=== PATIENT | female | born 1990 | race African-American/Black ===

== ENCOUNTER 2016-10-26 13:49 | Emergency (ER) | payer SELFPAY ==
[2016-10-26 13:56] VITALS: BP 147/91; PULSE 79; TEMP 98.6; BMI 24.1
[2016-10-26 15:22] LABS: URINE APPEARANCE CLEAR; URINE BILIRUBIN NEGATIVE (NEGATIVE); URINE BLOOD NEGATIVE (NEGATIVE); URINE COLOR STRAW; URINE GLUCOSE (UA) NEGATIVE (NEGATIVE); URINE KETONE NEGATIVE (NEGATIVE); URINE LEUK ESTERASE TRACE (NEGATIVE); URINE NITRITE NEGATIVE (NEGATIVE); URINE PROTEIN NEGATIVE (NEGATIVE); URINE UROBILINOGEN NEGATIVE mg/dL (0.2-1.0)
[2016-10-26 15:34] LABS: URINE BACTERIA RARE /hpf (NONE SEEN); URINE MUCUS RARE; URINE RBC 1 /hpf (0-3); URINE WBC 10 /hpf (3-5)
--- NOTE | 2016-10-26 15:50 | PDOC ---
History of Present Illness - General Chief Complaint: Pain Stated Complaint: PAIN Time Seen by Provider: 10/26/16 14:20 History Source: Patient Exam Limitations: No Limitations - History of Present Illness Travel History: No Initial Comments: 10/26/16 15:51 25-year-old female presents the ED with complaints of mild suprapubic cramping associated with lower abdominal distention over the past 2 weeks worse in the evening hours. Patient has no other complaints at this time including urinary complaints, irregular menses, change in bowel pattern, fever, nausea, or rash. Patient does state history of fibroid and had surgery a few years ago. Patient states has not taken anything for the pain nor has she seeked medical attention. Timing/Duration: reports: intermittent Quality: reports: mild, cramping Abdominal Pain Onset Location: reports: periumbilical ( lower), suprapubic Pain Radiation: denies: no radiation Activities at Onset: denies: none Aggravating Factors: worse with: None Alleviating Factors: worse with: None Past History - Travel Traveled outside of the country in the last 30 days: No - Past Medical History Allergies/Adverse Reactions: Allergies Allergy/AdvReac Type Severity Reaction Status Date / Time No Known Allergies Allergy Verified 10/26/16 13:55 Home Medications: Ambulatory Orders NK [No Known Home Medication] 10/26/16 Kidney Stones: Yes - Psycho/Social/Smoking Cessation Hx Anxiety: No Suicidal Ideation: No Smoking Status: Yes Smoking History: Current some day smoker Number of Cigarettes Smoked Daily: 2 Information on smoking cessation initiated: No Hx Alcohol Use: Yes (SOCIAL) Drug/Substance Use Hx: No Substance Use Type: None Patient Lives Alone: No Lives with/in: parents Review of Systems - Review of Systems Able to Perform ROS?: Yes Constitutional: No: Symptoms Reported HEENTM: No: Symptoms Reported ABD/GI: Yes: Abdominal Distended, Abdominal cramping : No: Symptoms Reported Musculoskeletal: No: Symptoms Reported Integumentary: No: Symptoms Reported Neurological: No: Symptoms reported *Physical Exam - Vital Signs Last Vital Signs Temp Pulse Resp BP Pulse Ox 98.6 F 79 18 147/91 100 10/26/16 13:52 10/26/16 13:52 10/26/16 13:52 10/26/16 13:52 10/26/16 13:52 - Physical Exam General Appearance: Yes: Nourished, Appropriately Dressed. No: Apparent Distress Female Pelvic Exam: positive: normal external exam. negative: vaginal bleeding Gastrointestinal/Abdominal: positive: Normal Bowel Sounds, Soft, Distended (mid suprapubic), Tenderness (mid suprapubic). negative: Guarding, Rebound, Hernia, Mass Musculoskeletal: negative: CVA Tenderness Extremity: positive: Normal Range of Motion Integumentary: positive: Normal Color, Warm, Moist Neurologic: positive: Motor Strength 5/5 (ambulatory) Medical Decision Making - Medical Decision Making 10/26/16 15:54 Patient here for concerning lower abdominal distention intermittently for the past 2 weeks resolved in the a.m. return to the evening. Patient has no other complaints except for mild pelvic cramping. Patient on exam had noted mild suprapubic distention without palpable mass. Patient with mild lower periumbilical discomfort upon palpation. Patient with a urinalysis urine and ultrasound. 10/26/16 18:13 Shows multiple uterine fibroids with at least 3 identified the largest measuring up to 3.9 cm in size. Otherwise ovaries and adnexal regions are normal. Patient will be given a referral to PYRIDINE OPERATOR and/or follow-up with previous PYRIDINE OPERATOR who performed previous surgery. 10/26/16 18:13 Laboratory Tests 10/26/16 14:50 Urine Nitrite Negative Ur Leukocyte Esterase Trace Urine WBC 10 Urine HCG, Qual Negative Pt has no urinary complaints. Urine cx sent. Will await results *DC/Admit/Observation/Transfer Diagnosis at time of Disposition: Fibroid, uterine Qualifiers: Uterine leiomyoma location: intramural Qualified Code(s): D25.1 - Intramural leiomyoma of uterus - Discharge Dispostion Disposition: HOME Condition at time of disposition: Good - Referrals Referrals: Asuncion Diaz MD [Staff Physician] - - Patient Instructions Printed Discharge Instructions: DI for Uterine Fibroids Additional Instructions: Please follow-up with your previous PYRIDINE OPERATOR that performed the surgery since the ultrasound that shows multiple uterine fibroids. Otherwise you may follow up with the referred PYRIDINE OPERATOR. - Post Discharge Activity Work/School Note: Back to Work
== END 2016-10-26 18:27 | disposition home or self-care (01) ==
LOC: JER 13:49
DX: D25.1 Intramural leiomyoma of uterus (principal)
CPT/HCPCS: 76856-TC; 81003; 81015; 84703; 87077; 87086; 99282-25

== ENCOUNTER 2017-02-02 02:19 | Emergency (ER) | payer SELFPAY ==
[2017-02-02 02:38] VITALS: BP 157/99; PULSE 77; BMI 27.4
[2017-02-02] MEDS ORDERED: FAMOTIDINE IV 20 MG/12 ML VIAL IVPB ONE (02:59)
[2017-02-02] MEDS ORDERED: ONDANSETRON 4 MG/2 ML VIAL IVPUSH ONE (02:59)
[2017-02-02] MEDS ORDERED: SODIUM CHLORIDE 0.9% 1000 ML INFUS.BAG IV ONE (03:02)
[2017-02-02] MEDS ORDERED: KETOROLAC TROMETHAMINE 30 MG/1 ML VIAL IVPUSH ONE (03:02)
--- NOTE | 2017-02-02 03:10 | PDOC ---
History of Present Illness - General Chief Complaint: Pain Stated Complaint: ABD PAIN Time Seen by Provider: 02/02/17 02:53 History Source: Patient Exam Limitations: No Limitations - History of Present Illness Initial Comments: 02/02/17 03:03 Patient is a 26-year-old female with history of fibroids, myomectomy complaining of nausea, vomiting, diarrhea, abdominal pain x 3 days. Patient states 3 days ago she went out to eat seafood and started to have symptoms. States she took Imodium for diarrhea stopped, was unable to pass any bowel. This morning woke up vomiting. States she had upper abdominal pain while vomiting was 8/10 then became generalized achy, crampy, intermittent, pain 6/ 10. Currently has nausea, but has not pain. PMHX: As above PSOCHX: neg cig, drugs, etoh ALL: NKDA GENERAL/CONSTITUTIONAL: [No fever or chills. No weakness. No weight change.] HEAD, EYES, EARS, NOSE AND THROAT: [No change in vision. No ear pain or discharge. No sore throat.] CARDIOVASCULAR: [No chest pain or shortness of breath.] RESPIRATORY: [No cough, wheezing, or hemoptysis.] GASTROINTESTINAL: (+) nausea, vomiting, diarrhea (-) constipation. No rectal bleeding.] GENITOURINARY: [No dysuria, frequency, or change in urination.] MUSCULOSKELETAL: [No joint or muscle swelling or pain. No neck or back pain.] SKIN AND BREASTS: [No rash or easy bruising.] NEUROLOGIC: [No headache, vertigo, loss of consciousness, or loss of sensation.] PSYCHIATRIC: [No depression or anxiety.] ENDOCRINE: [No increased thirst. No abnormal weight change.] HEMATOLOGIC/LYMPHATIC: [No anemia, easy bleeding, or history of blood clots.] ALLERGIC/IMMUNOLOGIC: [No hives or skin allergy. No latex allergy.] GENERAL: [The patient is awake, alert, and fully oriented, in no acute distress. ] HEAD: [Normal with no signs of trauma.] EYES: [Pupils equal, round and reactive to light, extraocular movements intact, sclera anicteric, conjunctiva clear.] ENT: [Ears normal, nares patent, oropharynx clear without exudates. Moist mucous membranes.] NECK: [Normal range of motion, supple without lymphadenopathy, JVD, or masses.] LUNGS: [Breath sounds equal, clear to auscultation bilaterally. No wheezes, and no crackles.] HEART: [Regular rate and rhythm, normal S1 and S2 without murmur, rub.] ABDOMEN: [Soft, nontender, normoactive bowel sounds. No guarding, no rebound. No masses.] EXTREMITIES: [Normal range of motion, no edema. No clubbing or cyanosis. No cords, erythema, or tenderness.] NEUROLOGICAL: [Cranial nerves II through XII grossly intact. Normal speech, normal gait.] PSYCH: [Normal mood, normal affect.] SKIN: [Warm, Dry, normal turgor, no rashes or lesions noted.] 02/02/17 04:30 Past History - Past Medical History Allergies/Adverse Reactions: Allergies Allergy/AdvReac Type Severity Reaction Status Date / Time No Known Allergies Allergy Verified 02/02/17 02:35 Home Medications: Ambulatory Orders NK [No Known Home Medication] 10/26/16 Kidney Stones: Yes - Suicide/Smoking/Psychosocial Hx Smoking Status: Yes Smoking History: Never smoked Have you smoked in the past 12 months: No Number of Cigarettes Smoked Daily: 2 Information on smoking cessation initiated: No Hx Alcohol Use: No Drug/Substance Use Hx: No Substance Use Type: None *Physical Exam - Vital Signs Last Vital Signs Temp Pulse Resp BP Pulse Ox 77 12 157/99 100 02/02/17 02:37 02/02/17 02:37 02/02/17 02:37 02/02/17 02:37 ED Treatment Course - LABORATORY CBC & Chemistry Diagram: 02/02/17 03:32 02/02/17 03:32 Medical Decision Making - Medical Decision Making 02/02/17 03:10 Patient is a 26-year-old female with history of fibroids, myomectomy complaining of nausea, vomiting, diarrhea, abdominal pain x 3 days after eating seafood consistent with gastroenteritis, labs, pain meds, antinausea, IVF, cbc cmp, reassess 02/02/17 04:36 labs with no acute finding will po challenge tolerating po 02/02/17 05:44 ua neg I discussed the physical exam findings, ancillary test results and final diagnoses with the patient. I answered all of the patient's questions. The patient was satisfied with the care received and felt comfortable with the discharge plan and treatment plan. The Patient agrees to follow up with the primary care physician within 24-72 hours. *DC/Admit/Observation/Transfer Diagnosis at time of Disposition: Nausea vomiting and diarrhea, Pain, abdominal, generalized - Discharge Dispostion Disposition: HOME Condition at time of disposition: Stable - Referrals Referrals: [facility] [Provider Group] - Patient Instructions Printed Discharge Instructions: DI for Viral Gastroenteritis -- Adult - Post Discharge Activity Forms/Work/School Notes: Back to Work
[2017-02-02] MEDS ORDERED: KETOROLAC TROMETHAMINE 30 MG/1 ML VIAL ONE (03:14)
[2017-02-02] MEDS ORDERED: ONDANSETRON 4 MG/2 ML VIAL ONE (03:14)
[2017-02-02] MEDS ORDERED: FAMOTIDINE 20 MG/50 ML IVPB 20 MG/50 ML MG IVPB ONE (03:14)
[2017-02-02 03:44] LABS: BASOPHIL 1.2 % (0-2.0); EOSINOPHIL 2.2 % (0-4.5); MCH 25.5 pg (25.7-33.7); MEAN CELL VOLUME 79.7 fl (80-96); MEAN PLT VOLUME 10.6 fl (7.5-11.1); NEUTROPHILS 63.4 % (42.8-82.8); PLATELET COUNT 201 K/MM3 (134-434); RDW 16.5 % (11.6-15.6); WHITE BLOOD COUNT 4.8 K/mm3 (4.0-10.0)
[2017-02-02 04:10] LABS: ALBUMIN 3.5 g/dl (3.4-5.0); ALK PHOS 78 U/L (45-117); ANION GAP 8 (8-16); BILIRUBIN,TOTAL 0.2 mg/dL (0.2-1.0); CO2 25 mmol/L (21-32); CREATININE 0.7 mg/dL (0.55-1.02); GLUCOSE,RANDOM 97 mg/dL (74-106); SGOT/AST 17 U/L (15-37); SGPT/ALT 16 U/L (12-78); TOT PROT 7.5 g/dl (6.4-8.2)
[2017-02-02 05:15] LABS: URINE APPEARANCE CLEAR; URINE BILIRUBIN NEGATIVE (NEGATIVE); URINE BLOOD NEGATIVE (NEGATIVE); URINE COLOR COLORLESS; URINE GLUCOSE (UA) NEGATIVE (NEGATIVE); URINE KETONE NEGATIVE (NEGATIVE); URINE NITRITE NEGATIVE (NEGATIVE); URINE PROTEIN NEGATIVE (NEGATIVE); URINE UROBILINOGEN NEGATIVE mg/dL (0.2-1.0)
[2017-02-02 13:12] LABS: URINE LEUK ESTERASE Negative (NEGATIVE)
== END 2017-02-02 06:03 | disposition home or self-care (01) ==
LOC: JER 02:19
PROC: 3E0333Z Introduction of Anti-inflammatory into Peripheral Vein, Percutaneous Approach (ICD-10-PCS; principal; 2017-02-02)
PROC: 3E033GC Introduction of Other Therapeutic Substance into Peripheral Vein, Percutaneous Approach (ICD-10-PCS; 2017-02-02)
PROC: 3E033GC Introduction of Other Therapeutic Substance into Peripheral Vein, Percutaneous Approach (ICD-10-PCS; 2017-02-02)
DX: A08.4 Viral intestinal infection, unspecified (principal); B97.89 Other viral agents as the cause of diseases classified elsewhere
CPT/HCPCS: 36415; 80053; 81003; 85025; 99283-25

== ENCOUNTER 2017-03-08 02:49 | Emergency (ER) | payer BC, OTHER ==
[2017-03-08 03:19] VITALS: BP 145/73; PULSE 86; TEMP 98.3; BMI 29.2
--- NOTE | 2017-03-08 04:04 | PDOC ---
History of Present Illness - General History Source: Patient Exam Limitations: No Limitations - History of Present Illness Initial Comments: 03/08/17 04:13 The patient is a 26 year old female with a significant past medical history kidney stones who presents to the ED with abdominal pain for 2 days. The patient reports intermittent epigastric that radiates downward to her lower quadrant. Patient states the pain feels like a pulling sensation. She reports her epigastric pain is sharp and is progressively worsening. She states she took motrin at home with relief of present symptoms. Patient states she has a history of abdominal problems for years. Patient does not regularly follow up with primary care provider. Denies vomiting or diarrhea. Denies dysuria or change in urinary output. Denies fever or chills. Denies any other symptoms. <Reji Hanley - Last Filed: 03/08/17 04:13> <Ana Tobias - Last Filed: 03/08/17 21:15> - General Chief Complaint: Pain Stated Complaint: ABD PAIN Time Seen by Provider: 03/08/17 03:16 Past History <Reji Hanley - Last Filed: 03/08/17 04:13> - Past Medical History Anemia: No Asthma: No Cancer: No Cardiac Disorders: No CVA: No COPD: No DVT: No Dementia: No Diabetes: No Dialysis: No GI Disorders: No Disorders: No HTN: No Hypercholesterolemia: No Kidney Stones: Yes Liver Disease: No Psychiatric Problems: No Seizures: No Thyroid Disease: No Lung CA: No - Suicide/Smoking/Psychosocial Hx Smoking Status: Yes Smoking History: Never smoked Have you smoked in the past 12 months: No Number of Cigarettes Smoked Daily: 2 Information on smoking cessation initiated: No Hx Alcohol Use: No Drug/Substance Use Hx: No Substance Use Type: None <Ana Tobias - Last Filed: 03/08/17 21:15> - Past Medical History Allergies/Adverse Reactions: Allergies Allergy/AdvReac Type Severity Reaction Status Date / Time No Known Allergies Allergy Verified 03/08/17 03:19 Home Medications: Ambulatory Orders NK [No Known Home Medication] 10/26/16 Review of Systems - Review of Systems Able to Perform ROS?: Yes Comments:: 03/08/17 04:13 CONSTITUTIONAL: Absent: fever, chills, diaphoresis, generalized weakness, malaise, loss of appetite HEENT: Absent: rhinorrhea, nasal congestion, throat pain, throat swelling, difficulty swallowing, mouth swelling, ear pain, eye pain, visual Changes CARDIOVASCULAR: Absent: chest pain, syncope, palpitations, irregular heart rate, lightheadedness , peripheral edema RESPIRATORY: Absent: cough, shortness of breath, dyspnea with exertion, orthopnea, wheezing, stridor, hemoptysis GASTROINTESTINAL: + abdominal pain Absent: abdominal distension, nausea, vomiting, diarrhea, constipation, melena, hematochezia GENITOURINARY: Absent: dysuria, frequency, urgency, hesitancy, hematuria, flank pain, genital pain MUSCULOSKELETAL: Absent: myalgia, arthralgia, joint swelling SKIN: Absent: rash, itching, pallor HEMATOLOGIC/IMMUNOLOGIC: Absent: easy bleeding, easy bruising, lymphadenopathy, frequent infections ENDOCRINE: Absent: unexplained weight gain, unexplained weight loss, heat intolerance, cold intolerance NEUROLOGIC: Absent: headache, focal weakness or paresthesias, dizziness, unsteady gait, seizure, mental status changes, bladder or bowel incontinence PSYCHIATRIC: Absent: anxiety, depression, suicidal or homicidal ideation, hallucinations. All Other Systems: Reviewed and Negative <Reji Hanley - Last Filed: 03/08/17 04:13> *Physical Exam - Vital Signs Last Vital Signs Temp Pulse Resp BP Pulse Ox 98.3 F 86 18 145/73 100 03/08/17 03:17 03/08/17 03:17 03/08/17 03:17 03/08/17 03:17 03/08/17 03:17 - Physical Exam Comments: 03/08/17 04:13 GENERAL: Well developed, well nourished. Awake and alert. No acute distress. HEENT: Normocephalic, atraumatic. PERRLA, EOMI. No conjunctival pallor. Sclera are non- icteric. Moist mucous membranes. Oropharynx is clear. NECK: Supple. Full ROM. No JVD. Carotid pulses 2+ and symmetric, without bruits. No thyromegaly. NCo lymphadenopathy. CARDIOVASCULAR: Regular rate and rhythm. No murmurs, rubs, or gallops. Distal pulses are 2+ and symmetric. PULMONARY: No evidence of respiratory distress. Lungs clear to auscultation bilaterally. No wheezing, rales or rhonchi. ABDOMINAL: Soft. Non-tender. Non-distended. No rebound or guarding. No organomegaly. Normoactive bowel sounds. MUSCULOSKELETAL Normal range of motion at all joints. No bony deformities or tenderness. No CVA tenderness. EXTREMITIES: No cyanosis. No clubbing. No edema. No calf tenderness. SKIN: Warm and dry. Normal capillary refill. No rashes. No jaundice. NEUROLOGICAL: Alert, awake, appropriate. Cranial nerves 2-12 intact. No deficits to light touch and temperature in face, upper extremities and lower extremities. No motor deficits in the in face, upper extremities and lower extremities. Normoreflexic in the upper and lower extremities. Normal speech. Toes are down- going bilaterally. Gait is normal without ataxia. PSYCHIATRIC: Cooperative. Good eye contact. Appropriate mood and affect. <Reji Hanley - Last Filed: 03/08/17 04:13> - Vital Signs Last Vital Signs Temp Pulse Resp BP Pulse Ox 98.3 F 86 18 145/73 100 03/08/17 03:17 03/08/17 03:17 03/08/17 03:17 03/08/17 03:17 03/08/17 03:17 <Ana Tobias - Last Filed: 03/08/17 21:15> Medical Decision Making - Medical Decision Making 03/08/17 21:14 Pt comes with mid abdominal pain. Normal exam, normal UA, normal vitals. Abd XR shows copious constipation and gas. Pt will be discahrged home with laxative. <Ana Tobias - Last Filed: 03/08/17 21:15> *DC/Admit/Observation/Transfer - Attestations Scribe Attestion: 03/08/17 04:14 Documentation prepared by Reji Hanley, acting as medical historian for Ana Tobias MD <Reji Hanley - Last Filed: 03/08/17 04:13> - Discharge Dispostion Admit: No <Ana Tobias - Last Filed: 03/08/17 21:15> Diagnosis at time of Disposition: Constipation - Discharge Dispostion Disposition: HOME Condition at time of disposition: Stable - Patient Instructions Printed Discharge Instructions: High-Fiber Diet, DI for Constipation - Post Discharge Activity Forms/Work/School Notes: Back to Work
[2017-03-08 04:44] LABS: URINE APPEARANCE SLCLOUDY; URINE BILIRUBIN NEGATIVE (NEGATIVE); URINE BLOOD 3+ (NEGATIVE); URINE COLOR LTYELLOW; URINE GLUCOSE (UA) NEGATIVE (NEGATIVE); URINE KETONE NEGATIVE (NEGATIVE); URINE LEUK ESTERASE NEGATIVE (NEGATIVE); URINE NITRITE NEGATIVE (NEGATIVE); URINE UROBILINOGEN NEGATIVE mg/dL (0.2-1.0)
[2017-03-08 04:53] LABS: URINE PROTEIN 1+ (NEGATIVE)
[2017-03-08 04:55] LABS: EPI CELLS RARE /HPF (FEW); URINE MUCUS RARE
[2017-03-08 05:28] LABS: HCG,QUALITATIVE URINE NEGATIVE
[2017-03-08] MEDS ORDERED: LACTULOSE 20 GM/30 ML UDC (FOR ORAL USE ONLY) PO ONE (05:59)
[2017-03-08] MEDS ORDERED: LACTULOSE 20 GM/30 ML UDC (FOR ORAL USE ONLY) ONE (06:09)
== END 2017-03-08 06:17 | disposition home or self-care (01) ==
LOC: JER 02:49
DX: K59.00 Constipation, unspecified (principal)
CPT/HCPCS: 74019-TC; 81003; 81015; 84703; 99282-25

== ENCOUNTER 2017-04-06 00:30 | Emergency (ER) | payer BC, OTHER ==
--- NOTE | 2017-04-06 00:44 | PDOC ---
History of Present Illness - History of Present Illness Initial Comments: 04/06/17 01:28 Patient is a 26F, with no significant PMHx, who presents with flu-like symptoms for 2 days. Patient has a 100.9 temp, and also reports body aches, cough , chills, nasal congestion, and nausea. She denies sick contacts. <Carlie Oro - Last Filed: 04/06/17 01:30> <Angeles Daigle - Last Filed: 04/06/17 01:56> - General Chief Complaint: Cold Symptoms Stated Complaint: FLU-LIKE SYMPTOMS Time Seen by Provider: 04/06/17 00:43 Past History <Carlie Oro - Last Filed: 04/06/17 01:30> - Past Medical History Anemia: No Asthma: No Cancer: No Cardiac Disorders: No CVA: No COPD: No DVT: No Dementia: No Diabetes: No Dialysis: No GI Disorders: No Disorders: No HTN: No Hypercholesterolemia: No Kidney Stones: Yes Liver Disease: No Psychiatric Problems: No Seizures: No Thyroid Disease: No Lung CA: No - Suicide/Smoking/Psychosocial Hx Smoking Status: Yes Smoking History: Never smoked Have you smoked in the past 12 months: No Number of Cigarettes Smoked Daily: 2 Information on smoking cessation initiated: No Hx Alcohol Use: No Drug/Substance Use Hx: No Substance Use Type: None <Angeles Daigle - Last Filed: 04/06/17 01:56> - Past Medical History Allergies/Adverse Reactions: Allergies Allergy/AdvReac Type Severity Reaction Status Date / Time No Known Allergies Allergy Verified 04/06/17 00:40 Home Medications: Ambulatory Orders NK [No Known Home Medication] 10/26/16 Review of Systems - Review of Systems Comments:: 04/06/17 01:28 CONSTITUTIONAL: Present: fever, chills EYES: Absent: visual changes ENT: Present: nasal congestion. Absent: ear pain, no sore throat CARDIOVASCULAR: Absent: chest pain, no palpitations RESPIRATORY: Present: cough Absent: no SOB GI: Present: nausea Absent: abdominal pain, no vomiting, no constipation, no diarrhea GENITOURINARY: Absent: dysuria, no frequency, no hematuria MUSCULOSKELETAL: Present: myalgia Absent: back pain, no arthralgia. SKIN: Absent: rash NEURO: Absent: headache <Carlie Oro - Last Filed: 04/06/17 01:30> *Physical Exam - Vital Signs Last Vital Signs Temp Pulse Resp BP Pulse Ox 100.9 F H 106 H 20 137/89 99 04/06/17 00:40 04/06/17 00:40 04/06/17 00:40 04/06/17 00:40 04/06/17 00:40 - Physical Exam Comments: 04/06/17 01:30 GENERAL: Afebrile. Well-appearing, well-nourished. No apparent distress. HEENT: Normocephalic, atraumatic. PERRL, EOM intact. Rhinnorhea. CARDIOVASCULAR: Tachycardic. Normal S1, S2. Regular rate and rhythm. PULMONARY: Clear to auscultation bilaterally. ABDOMEN: Soft, non-distended, non-tender. EXTREMITIES: Normal ROM in all four extremities. No gross deformities. SKIN: Warm to touch. Dry. No rash NEUROLOGICAL: No focal neurological deficits. <PreethiAndres quirozina - Last Filed: 04/06/17 01:30> - Vital Signs Last Vital Signs Temp Pulse Resp BP Pulse Ox 100.9 F H 106 H 20 137/89 99 04/06/17 00:40 04/06/17 00:40 04/06/17 00:40 04/06/17 00:40 04/06/17 00:40 <Angeles Daigle - Last Filed: 04/06/17 01:56> *DC/Admit/Observation/Transfer <Carlie Oro - Last Filed: 04/06/17 01:30> <Angeles Daigle - Last Filed: 04/06/17 01:56> Diagnosis at time of Disposition: Cough Fever Qualifiers: Fever type: unspecified Qualified Code(s): R50.9 - Fever, unspecified - Discharge Dispostion Disposition: HOME Condition at time of disposition: Stable - Patient Instructions Printed Discharge Instructions: DI for Viral Upper Respiratory Infection -- Adult, DI for Common Cold Additional Instructions: please take tylenol or motrin for pain and body aches rest stay hydrated return for any worsening symptoms - Post Discharge Activity Forms/Work/School Notes: Back to Work
[2017-04-06] MEDS ORDERED: IBUPROFEN 600 MG TABLET (FP) PO ONE ×2 (01:55→01:57)
[2017-04-06 02:06] VITALS: BP 137/89; PULSE 106; TEMP 100.9; BMI 27.4
== END 2017-04-06 02:02 | disposition home or self-care (01) ==
LOC: JER 00:30
DX: J06.9 Acute upper respiratory infection, unspecified (principal); B97.89 Other viral agents as the cause of diseases classified elsewhere
CPT/HCPCS: 87804; 99281-25

== ENCOUNTER 2017-04-09 10:14 | Emergency (ER) | payer BC ==
[2017-04-09 10:22] VITALS: BP 151/90; PULSE 83; TEMP 98; BMI 27.4
--- NOTE | 2017-04-09 11:22 | PDOC ---
History of Present Illness - General Chief Complaint: Respiratory Stated Complaint: REVISIT, RESPIRATORY Time Seen by Provider: 04/09/17 10:33 History Source: Patient Exam Limitations: No Limitations - History of Present Illness Initial Comments: CHIEF COMPLAINT: 26 y/o afebrile female who was seen here 2 days ago c/o continued cough and symptoms. HISTORY OF PRESENT ILLNESS: Patient was seen 2 days ago for two days of flu like symptoms but was negative for flu. She was dx with a URI and has been taking nyquil and dayquil. She states she still has a cough and congestion and still generally feels under the weather. She does admit fever has resolved. Past History - Past Medical History Allergies/Adverse Reactions: Allergies Allergy/AdvReac Type Severity Reaction Status Date / Time No Known Allergies Allergy Verified 04/09/17 10:20 Home Medications: Ambulatory Orders Guaifenesin AC [Robitussin AC] 10 ml PO HS #100 ml MDD 20 04/09/17 Nebulizer and Compressor [Sherman Choice Nebulizer] 1 each MC PRN #1 each Sodium Chloride Inhalation [Normal Saline *For Inhalation*] 3 ml IH PRN #50 vial.neb 04/09/17 Anemia: No Asthma: No Cancer: No Cardiac Disorders: No CVA: No COPD: No DVT: No Dementia: No Diabetes: No Dialysis: No GI Disorders: No Disorders: No HTN: No Hypercholesterolemia: No Kidney Stones: Yes Liver Disease: No Psychiatric Problems: No Seizures: No Thyroid Disease: No Lung CA: No Other medical history: FIBROIDS, ENDOMETRIOSIS - Suicide/Smoking/Psychosocial Hx Smoking Status: Yes Smoking History: Never smoked Have you smoked in the past 12 months: No Number of Cigarettes Smoked Daily: 2 Hx Alcohol Use: Yes (OCCASIONALLY) Drug/Substance Use Hx: No Substance Use Type: None Review of Systems - Review of Systems Able to Perform ROS?: Yes Constitutional: No: Chills, Fever HEENTM: Yes: Nose Congestion. No: Ear Pain Respiratory: Yes: Cough, Shortness of Breath. No: Wheezing Cardiac (ROS): No: Chest Pain ABD/GI: No: Nausea, Vomiting *Physical Exam - Vital Signs Last Vital Signs Temp Pulse Resp BP Pulse Ox 98.0 F 83 16 151/90 99 04/09/17 10:17 04/09/17 10:17 04/09/17 10:17 04/09/17 10:17 04/09/17 10:17 - Physical Exam Comments: Ambulatory female, non toxic but ill appearing. General Appearance: Yes: Nourished, Appropriately Dressed. No: Apparent Distress HEENT: positive: EOMI, MENDY, Nasal Congestion. negative: Muffled/Hoarse voice, Pharyngeal Erythema, Tonsillar Exudate, Tonsillar Erythema, Rhinorrhea Neck: negative: Lymphadenopathy (R), Lymphadenopathy (L) Respiratory/Chest: positive: Lungs Clear, Normal Breath Sounds. negative: Crackles, Rales, Rhonchi, Wheezing Cardiovascular: positive: Regular Rhythm, Regular Rate Medical Decision Making - Medical Decision Making A/P: 26 y/o female with cough and congestion. Still with symptoms of URI. Plan is to send rx for nebulizer and normal saline and robitussin AC for cough to be taken at night only. Patient instructed to rest, drink fluids and return to the eR with any worsening or concerning symptoms. The patient verbalizes understanding of all instructions, has no further questions and is awaiting discharge. *DC/Admit/Observation/Transfer Diagnosis at time of Disposition: Cough Upper respiratory infection Qualifiers: URI type: unspecified URI Qualified Code(s): J06.9 - Acute upper respiratory infection, unspecified - Discharge Dispostion Disposition: HOME Condition at time of disposition: Good - Prescriptions Prescriptions: Guaifenesin AC [Robitussin AC] 10 ml PO HS #100 ml MDD 20 Nebulizer and Compressor [Sherman Choice Nebulizer] 1 each MC PRN #1 each Sodium Chloride Inhalation [Normal Saline *For Inhalation*] 3 ml IH PRN #50 vial.neb - Referrals Referrals: Dustin Hercules MD [Primary Care Provider] - - Patient Instructions Printed Discharge Instructions: DI for Viral Upper Respiratory Infection -- Adult, DI for Cough -- Adult Additional Instructions: Discharge Instructions: -Use nebulizer and cough medicine as prescribed -Drink plenty of fluids and get lots of rest -Take tylenol or motrin for fever/pain -Return to the ER with any worsening or concerning symptoms - Post Discharge Activity Forms/Work/School Notes: Back to Work
== END 2017-04-09 11:28 | disposition home or self-care (01) ==
LOC: JERFT 10:14
DX: J06.9 Acute upper respiratory infection, unspecified (principal); Z87.42 Personal history of other diseases of the female genital tract
CPT/HCPCS: 99281-25

== ENCOUNTER 2017-04-20 22:52 | Emergency (ER) | payer BC ==
[2017-04-20 23:17] VITALS: BP 143/91; PULSE 84; TEMP 97.9; BMI 28.3
[2017-04-21] MEDS ORDERED: KETOROLAC TROMETHAMINE 60 MG/2 ML VIAL IM ONE (00:03)
[2017-04-21] MEDS ORDERED: CYCLOBENZAPRINE HCL 10 MG TABLET (FP) ONE (00:06)
[2017-04-21] MEDS ORDERED: KETOROLAC TROMETHAMINE 60 MG/2 ML VIAL ONE (00:06)
--- NOTE | 2017-04-21 00:08 | PDOC ---
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 Pain is exacerbated with certain positions and alleviated minimally at rest. Patient denies falling, head injuries, neck pains, chest pain, shortness of breath, abdominal pains, extremity numbness or tingling sensation, bladder or bowel dysfunction. Patient refuses U /cxr. States she is adamantly not . Occurred: reports: yesterday Past History - Past Medical History Allergies/Adverse Reactions: Allergies Allergy/AdvReac Type Severity Reaction Status Date / Time No Known Allergies Allergy Verified 04/09/17 10:20 Home Medications: Ambulatory Orders Cyclobenzaprine HCl [Flexeril 10 mg] 10 mg PO BID PRN #12 tablet 04/21/17 Anemia: No Asthma: No Cancer: No Cardiac Disorders: No CVA: No COPD: No DVT: No Dementia: No Diabetes: No Dialysis: No GI Disorders: No Disorders: No HTN: No Hypercholesterolemia: No Kidney Stones: Yes Liver Disease: No Psychiatric Problems: No Seizures: No Thyroid Disease: No Lung CA: No - Suicide/Smoking/Psychosocial Hx Smoking Status: Yes Smoking History: Never smoked Have you smoked in the past 12 months: No Number of Cigarettes Smoked Daily: 2 Information on smoking cessation initiated: No Hx Alcohol Use: No Drug/Substance Use Hx: No Substance Use Type: None Review of Systems - Review of Systems Able to Perform ROS?: Yes Comments:: 04/21/17 00:06 CONSTITUTIONAL: Absent: fever, chills, diaphoresis, generalized weakness, malaise, loss of appetite CARDIOVASCULAR: Absent: chest pain, loss of consciousness, palpitations, irregular heart rate, peripheral edema RESPIRATORY: Absent: cough, shortness of breath, dyspnea with exertion, orthopnea, wheezing, stridor, hemoptysis GASTROINTESTINAL: Absent: abdominal pain, abdominal distension, nausea, vomiting, diarrhea, constipation, melena, hematochezia GENITOURINARY: Absent: dysuria, frequency, urgency, hesitancy, hematuria, flank pain, genital pain MUSCULOSKELETAL: Mid left sided back pain Absent: myalgia, arthralgia, joint swelling SKIN: Absent: rash, itching, pallor HEMATOLOGIC/IMMUNOLOGIC: Absent: easy bleeding, easy bruising, lymphadenopathy, frequent infections ENDOCRINE: Absent: unexplained weight gain, unexplained weight loss, heat intolerance, cold intolerance NEUROLOGIC: Absent: headache, focal weakness or paresthesias, dizziness, unsteady gait, seizure, mental status changes, bladder or bowel incontinence PSYCHIATRIC: Absent: anxiety, depression, suicidal or homicidal ideation, hallucinations. Is the patient limited Thai proficient: No *Physical Exam - Vital Signs Last Vital Signs Temp Pulse Resp BP Pulse Ox 97.9 F 84 20 143/91 98 04/20/17 23:15 04/20/17 23:15 04/20/17 23:15 04/20/17 23:15 04/20/17 23:15 *DC/Admit/Observation/Transfer Diagnosis at time of Disposition: Upper back strain Qualifiers: Encounter type: initial encounter Qualified Code(s): S29.012A - Strain of muscle and tendon of back wall of thorax, initial encounter - Discharge Dispostion Disposition: HOME Condition at time of disposition: Stable Admit: No - Prescriptions Prescriptions: Cyclobenzaprine HCl [Flexeril -] 10 mg PO HS #7 tablet - Referrals Referrals: Joaquin Anguiano MD [Staff Physician] - - Patient Instructions Printed Discharge Instructions: DI for Back Strain or Sprain Additional Instructions: Ice; 20 mins on alternating with 20 mins off for 48 hours while awake. Rest Elevate Follow up with your orthopedic surgeon or the one listed on the discharge form. Return to the ER for severe/persistent/worsening symptoms, extremity numbness/ tingling sensation. - Post Discharge Activity Forms/Work/School Notes: Back to Work
[2017-04-21] MEDS ORDERED: CYCLOBENZAPRINE HCL 5 MG TABLET PO SCH (10:00)
== END 2017-04-21 00:14 | disposition home or self-care (01) ==
LOC: JERFT 22:52
PROC: 3E0233Z Introduction of Anti-inflammatory into Muscle, Percutaneous Approach (ICD-10-PCS; principal; 2017-04-20)
DX: S29.012A Strain of muscle and tendon of back wall of thorax, initial encounter (principal); X50.0XXA Overexertion from strenuous movement or load, initial encounter; Y93.89 Activity, other specified; Y92.242 Post office as the place of occurrence of the external cause; Y99.0 Civilian activity done for income or pay
CPT/HCPCS: 99281-25

== ENCOUNTER 2017-06-15 13:30 | Emergency (ER) | payer SELFPAY ==
[2017-06-15 13:57] VITALS: BP 133/85; PULSE 91; TEMP 98.5; BMI 28.3
--- NOTE | 2017-06-15 14:20 | PDOC ---
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 She has no fever, but has nasal congestion as well. Past History - Past Medical History Allergies/Adverse Reactions: Allergies Allergy/AdvReac Type Severity Reaction Status Date / Time No Known Allergies Allergy Verified 06/15/17 13:49 Home Medications: Ambulatory Orders NK [No Known Home Medication] 06/15/17 Anemia: No Asthma: No Cancer: No Cardiac Disorders: No CVA: No COPD: No DVT: No Dementia: No Diabetes: No Dialysis: No GI Disorders: No Disorders: No HTN: No Hypercholesterolemia: No Kidney Stones: Yes Liver Disease: No Psychiatric Problems: No Seizures: No Thyroid Disease: No Lung CA: No - Suicide/Smoking/Psychosocial Hx Smoking Status: Yes Smoking History: Never smoked Have you smoked in the past 12 months: No Number of Cigarettes Smoked Daily: 2 Information on smoking cessation initiated: No Hx Alcohol Use: No Drug/Substance Use Hx: No Substance Use Type: None Review of Systems - Review of Systems Able to Perform ROS?: Yes Comments:: 06/15/17 14:15 General statement: nasal congestin and chest pain Hematology: neg history of bleeding/blood thinners Skin: Neg for lesions, rash, bruising. HEENT: Neg symptoms Respiratory: Neg SOB or difficulty in breathing Cardiac: Neg chest pain GI: Neg pain, n/v : Neg problems on voiding MS: Neg for joint pain/stiffness, no edema Neuro: Neg for LOC, weakness, Endocrine: Neg for excess thirst/hunger, cold/heat intolerance, excess sweating Allergies: Neg for allergies *Physical Exam - Vital Signs Last Vital Signs Temp Pulse Resp BP Pulse Ox 98.5 F 91 H 16 133/85 100 06/15/17 13:50 06/15/17 13:50 06/15/17 13:50 06/15/17 13:50 06/15/17 13:50 - Physical Exam Comments: 06/15/17 14:18 General Appearance: This well appearing [employer] V/S: hemodynamically stable, afebrile Skin: WNL of pt's skin color, no signs of pallor, mottling, cyanosis Head:symmetrical Eyes: EOM's intact, PERRLA Ears: denies pain Nose: patent with nasal turbinates that are swollen Throat: lips, teeth, gums, tongue, buccal mucos pink and moist Lungs: Chest symmetry equal. Cap refill <3 seconds. Lung sounds clear Cardiac: PMI at R 4MCL space, pos S1 and S2, regular rate. Abdomen: Soft, round, nontender : Not observed Muscularskeletal: Gait steady, ambulated in to ER, no edema +PMS Neuro: AAOx3, cognitively intact, speech clear and appropriate. Medical Decision Making - Medical Decision Making 06/15/17 14:18 Pt seen and examined. LUng sounds clear, no fever, CXR obtained after ua preg 06/15/17 15:02 ekg nsr cxr clear discharged. *DC/Admit/Observation/Transfer Diagnosis at time of Disposition: Upper respiratory infection Qualifiers: URI type: unspecified viral URI Qualified Code(s): J06.9 - Acute upper respiratory infection, unspecified - Discharge Dispostion Disposition: HOME Condition at time of disposition: Stable Admit: No - Referrals Referrals: Dustin Hercules MD [Primary Care Provider] - - Patient Instructions Printed Discharge Instructions: DI for Viral Upper Respiratory Infection -- Adult Additional Instructions: Discharge instructions 1. Please follow up with your primary physician within the next few days and explain that you have been seen here in the Emergency Room. 2. If you experience any worsening of symptoms, please return to the ER 3. Rest 4. Drink plenty of water take tylenol - Post Discharge Activity Forms/Work/School Notes: Back to Work
--- NOTE | 2017-06-16 16:54 | EKG ---
Test Reason : Blood Pressure : / mmHG Vent. Rate : 078 BPM Atrial Rate : 078 BPM P-R Int : 134 ms QRS Dur : 098 ms QT Int : 364 ms P-R-T Axes : 035 041 031 degrees QTc Int : 414 ms NORMAL SINUS RHYTHM NORMAL ECG NO PREVIOUS ECGS AVAILABLE Confirmed by MD Atul, Anthony ([id number]) on 06/16/2017 4:54:10 PM Referred By: SB Confirmed By:Anthony Pollard MD
== END 2017-06-15 15:08 | disposition home or self-care (01) ==
LOC: JER 13:30 → JERFT 13:30
DX: J06.9 Acute upper respiratory infection, unspecified (principal); B97.89 Other viral agents as the cause of diseases classified elsewhere
CPT/HCPCS: 71046-TC-FY; 84703; 93005; 93010; 99281-25

== ENCOUNTER 2017-07-13 04:29 | Emergency (ER) | payer SELFPAY ==
--- NOTE | 2017-07-13 04:40 | PDOC ---
History of Present Illness - General History Source: Patient Exam Limitations: No Limitations - History of Present Illness Initial Comments: 07/13/17 05:07 The patient is a 26 year old female with past medical history of Fibroids, Kidney stones, myomectomy and endometriosis (in reproductive system) presents to the emergency department with suprapubic pain w/ vaginal bleeding. The patient reports endometriosis like symptoms for the past 2-3 days with intermittent pain, mild relief with advil or Tylenol. The patient reports heavy vaginal bleeding, bleeding through 2 pads in about 45 minutes, which she reports has subsided abit with changing of pad every hour or greater. The patient denies any dysuria, frequency or urgency to urinate. Patient denies fever, chills, cough, headache, and dizziness. Patient denies chest pain, diaphoresis, palpitations, and shortness of breath. Patient denies nausea, vomiting, diarrhea, and constipation. Allergies: None reported. Past Surgical History: myomectomy (4 Ib mass removed from the uterus) Social History: Non-smoker. Denies alcohol or drug use. <Cierra Mendoza - Last Filed: 07/13/17 05:07> <Ana Tobias - Last Filed: 07/13/17 06:40> - General Stated Complaint: PAIN Time Seen by Provider: 07/13/17 04:39 Past History <Cierra Mendoza - Last Filed: 07/13/17 05:07> - Past Medical History Anemia: No Asthma: No Cancer: No Cardiac Disorders: No CVA: No COPD: No DVT: No Dementia: No Diabetes: No Dialysis: No GI Disorders: No Disorders: No HTN: No Hypercholesterolemia: No Kidney Stones: Yes Liver Disease: No Psychiatric Problems: No Seizures: No Thyroid Disease: No Lung CA: No - Suicide/Smoking/Psychosocial Hx Smoking Status: Yes Smoking History: Never smoked Have you smoked in the past 12 months: No Number of Cigarettes Smoked Daily: 2 Hx Alcohol Use: No Drug/Substance Use Hx: No Substance Use Type: None <Ana Tobias - Last Filed: 07/13/17 06:40> - Past Medical History Allergies/Adverse Reactions: Allergies Allergy/AdvReac Type Severity Reaction Status Date / Time No Known Allergies Allergy Verified 06/15/17 13:49 Home Medications: Ambulatory Orders Ibuprofen [Motrin -] 600 mg PO TID #30 tablet 05/14/18 Review of Systems - Review of Systems Able to Perform ROS?: Yes Comments:: 07/13/17 05:08 GENERAL/CONSTITUTIONAL: No fever or chills. No weakness. HEAD, EYES, EARS, NOSE AND THROAT: No change in vision. No ear pain or discharge. No sore throat. CARDIOVASCULAR: No chest pain or shortness of breath. RESPIRATORY: No cough, wheezing, or hemoptysis. GASTROINTESTINAL: (+) suprapubic pain. No nausea, vomiting, diarrhea or constipation. GENITOURINARY: (+) Vaginal bleeding. No dysuria, frequency, or change in urination. MUSCULOSKELETAL: No joint or muscle swelling or pain. No neck or back pain. SKIN: No rash NEUROLOGIC: No headache, vertigo, loss of consciousness, or change in strength/ sensation. ENDOCRINE: No increased thirst. No abnormal weight change. HEMATOLOGIC/LYMPHATIC: No anemia, easy bleeding, or history of blood clots. ALLERGIC/IMMUNOLOGIC: No hives or skin allergy. <Cierra Mendoza - Last Filed: 07/13/17 05:07> *Physical Exam - Physical Exam Comments: 07/13/17 05:08 GENERAL: Awake, alert, and fully oriented, in no acute distress HEAD: No signs of trauma EYES: PERRLA, EOMI, sclera anicteric, conjunctiva clear ENT: Auricles normal inspection, hearing grossly normal, nares patent, oropharynx clear without exudates. Moist mucosa NECK: Normal ROM, supple, no lymphadenopathy, JVD, or masses LUNGS: Breath sounds equal, clear to auscultation bilaterally. No wheezes, and no crackles HEART: Regular rate and rhythm, normal S1 and S2, no murmurs, rubs or gallops ABDOMEN: Soft, nontender, normoactive bowel sounds. No guarding, no rebound. No masses EXTREMITIES: Normal range of motion, no edema. No clubbing or cyanosis. No cords, erythema, or tenderness NEUROLOGICAL: Cranial nerves II through XII grossly intact. Normal speech, normal gait SKIN: Warm, Dry, normal turgor, no rashes or lesions noted. <Cierra Mendoza - Last Filed: 07/13/17 05:07> ED Treatment Course - Medications Given in the ED: ED Medications Discontinued Medications Generic Name Dose Route Start Last Admin Trade Name Freq PRN Reason Stop Dose Admin Ketorolac Tromethamine 30 mg 07/13/17 04:51 07/13/17 04:58 Toradol Injection - IM 07/13/17 04:52 30 mg ONCE ONE Administration <Cierra Mendoza - Last Filed: 07/13/17 05:07> Medical Decision Making - Medical Decision Making 07/13/17 05:08 Documentation prepared by Cierra Mendoza, acting as medical director/head team physician for Ana Tobias MD. <Cierra Mendoza - Last Filed: 07/13/17 05:07> - Medical Decision Making 07/13/17 05:09 BPis incidentally elevated. Pt is refusing pain meds or narcotics. Pt understands that she needs to follow with her PMD for meds for HTN. I explained to her the significance of elevated BP on the heart muscle and the likelihood of developing heart failure 07/13/17 06:28 UA still pending as they are recalibrating machines in the lab./ <Ana Tobias - Last Filed: 07/13/17 06:40> *DC/Admit/Observation/Transfer <Cierra Mendoza - Last Filed: 07/13/17 05:07> - Discharge Dispostion Decision to Admit order: No <Ana Tobias - Last Filed: 07/13/17 06:40> Diagnosis at time of Disposition: Endometriosis - Discharge Dispostion Disposition: HOME Condition at time of disposition: Stable - Prescriptions Prescriptions: Ibuprofen [Motrin -] 600 mg PO TID #30 tablet - Patient Instructions Printed Discharge Instructions: DI for Endometriosis - Post Discharge Activity Forms/Work/School Notes: Back to Work
[2017-07-13] MEDS ORDERED: KETOROLAC TROMETHAMINE 60 MG/2 ML VIAL IM ONE (04:51)
[2017-07-13] MEDS ORDERED: KETOROLAC TROMETHAMINE 30 MG/1 ML VIAL ONE (04:51)
[2017-07-13 05:14] VITALS: BP 153/110; PULSE 70; BMI 31.2
[2017-07-13 06:26] LABS: URINE APPEARANCE SLCLOUDY; URINE BILIRUBIN NEGATIVE (<2.0 mg/dL); URINE COLOR LTYELLOW; URINE GLUCOSE (UA) NEGATIVE (NEGATIVE); URINE KETONE NEGATIVE (NEGATIVE); URINE LEUK ESTERASE NEGATIVE (NEGATIVE); URINE NITRITE NEGATIVE (NEGATIVE); URINE PROTEIN NEGATIVE (NEGATIVE); URINE UROBILINOGEN NEGATIVE mg/dL (0.2-1.0)
[2017-07-13 06:38] LABS: EPI CELLS RARE /HPF (FEW); URINE MUCUS RARE
== END 2017-07-13 06:46 | disposition home or self-care (01) ==
LOC: JER 04:29
PROC: 3E0233Z Introduction of Anti-inflammatory into Muscle, Percutaneous Approach (ICD-10-PCS; principal; 2017-07-13)
DX: N80.8 Other endometriosis (principal); I10 Essential (primary) hypertension; Z87.42 Personal history of other diseases of the female genital tract
CPT/HCPCS: 81003; 81015; 99281-25

== ENCOUNTER 2017-09-05 10:46 | Emergency (ER) | payer SELFPAY ==
[2017-09-05 10:50] VITALS: BP 148/94; PULSE 71; TEMP 98.3; BMI 30.1
--- NOTE | 2017-09-05 11:23 | PDOC ---
History of Present Illness - General Chief Complaint: Rash Stated Complaint: ALLERGIC REACTION Time Seen by Provider: 09/05/17 10:53 History Source: Patient Exam Limitations: No Limitations - History of Present Illness Initial Comments: CHIEF COMPLAINT: 26 y/o afebrile female with no significant PMH c/o itchy rash to her arms and face for the past few days. HISTORY OF PRESENT ILLNESS: The patient denies f/c, n/v/d, cough, CP, SOB, exposure to new meds/soaps/dyes/detergents, exposure to anyone with a rash, recent hotel stay/travel, itch worse at night. Past History - Past Medical History Allergies/Adverse Reactions: Allergies Allergy/AdvReac Type Severity Reaction Status Date / Time No Known Allergies Allergy Verified 09/05/17 10:50 Home Medications: Ambulatory Orders Diphenhydramine HCl/Zinc Acet [Benadryl 2% Cream] 1 applic TP TID #1 tube Prednisone [Deltasone] 40 mg PO DAILY #8 tablet 09/05/17 Anemia: No Asthma: No Cancer: No Cardiac Disorders: No CVA: No COPD: No DVT: No Dementia: No Diabetes: No Dialysis: No GI Disorders: No Disorders: No HTN: No Hypercholesterolemia: No Kidney Stones: Yes Liver Disease: No Psychiatric Problems: No Seizures: No Thyroid Disease: No Lung CA: No - Suicide/Smoking/Psychosocial Hx Smoking Status: Yes Smoking History: Never smoked Have you smoked in the past 12 months: No Number of Cigarettes Smoked Daily: 2 Hx Alcohol Use: No Drug/Substance Use Hx: No Substance Use Type: None Review of Systems - Review of Systems Able to Perform ROS?: Yes Constitutional: No: Symptoms Reported HEENTM: No: Symptoms Reported Respiratory: No: Symptoms reported Integumentary: Yes: Rash *Physical Exam - Vital Signs Last Vital Signs Temp Pulse Resp BP Pulse Ox 98.3 F 71 18 148/94 99 09/05/17 10:47 09/05/17 10:47 09/05/17 10:47 09/05/17 10:47 09/05/17 10:47 - Physical Exam Comments: The patient is well appearing, ambulatory and in NAD or obvious discomfort. General Appearance: Yes: Nourished, Appropriately Dressed. No: Apparent Distress HEENT: positive: EOMI, MENDY, Other (angioedema) Respiratory/Chest: positive: Lungs Clear. negative: Wheezing Cardiovascular: positive: Regular Rhythm, Regular Rate Integumentary: positive: Rash (to flexor surfaces of elbows, forearms, and both sides of face) Medical Decision Making - Medical Decision Making A/P: 26 y/o female with nonspecific rash. It is not worse at night. will send rx for benadryl cream and 4 day course of steroids. Instructed her to return to the ER if no improvement in 3-4 days. The patient verbalizes understanding of all instructions, has no further questions and is awaiting discharge. *DC/Admit/Observation/Transfer Diagnosis at time of Disposition: Rash and nonspecific skin eruption - Discharge Dispostion Disposition: HOME Condition at time of disposition: Good - Prescriptions Prescriptions: Diphenhydramine HCl/Zinc Acet [Benadryl 2% Cream] 1 applic TP TID #1 tube Prednisone [Deltasone] 40 mg PO DAILY #8 tablet - Referrals - Patient Instructions Printed Discharge Instructions: DI for Rash Additional Instructions: Discharge Instructions: -A cream and a short course of steroids have been sent to your pharmacy -Please return to the ER if no improvement within 3-4 days of medication - Post Discharge Activity Forms/Work/School Notes: Back to Work
== END 2017-09-05 11:25 | disposition home or self-care (01) ==
LOC: JERFT 10:46
DX: R21 Rash and other nonspecific skin eruption (principal)
CPT/HCPCS: 99281-25

== ENCOUNTER 2020-04-06 20:10 | Emergency (ER) | payer OTHER ==
[2020-04-06 20:26] VITALS: TEMP 98.2; BMI 30.4
[2020-04-06] MEDS ORDERED: ACETAMINOPHEN 1000 MG/100 ML VIAL (NON FORMULARY) IVPB ONE (21:20)
[2020-04-06] MEDS ORDERED: ONDANSETRON 4 MG/2 ML VIAL IVPUSH ONE (21:20)
[2020-04-06 21:38] LABS: BASO % 0.6 % (0-2.0); EOS % 0.4 % (0-4.5); HEMATOCRIT 27.7 % (32.4-45.2); HEMOGLOBIN 8.8 GM/dL (10.7-15.3); LYMPH % 20.8 % (8-40); MCHC 31.8 g/dl (32.0-36.0); MEAN CELL VOLUME 75.6 fl (80-96); MEAN PLT VOLUME 9.4 fl (7.5-11.1); MONO % 6.9 % (3.8-10.2); NEUT % 71.3 % (42.8-82.8); PLATELET COUNT 392 K/MM3 (134-434); RBC 3.67 M/mm3 (3.60-5.2); RDW 17.5 % (11.6-15.6)
[2020-04-06] MEDS ORDERED: ONDANSETRON 4 MG/2 ML VIAL ONE (21:46)
[2020-04-06] MEDS ORDERED: ACETAMINOPHEN INJECTION 100 ML IVPB ONE (21:46)
[2020-04-06 21:49] LABS: POTASSIUM 3.7 mmol/L (3.5-5.1)
[2020-04-06 21:51] LABS: BLOOD UREA NITROGEN 15.5 mg/dL (7-18); CALCIUM 9.4 mg/dL (8.5-10.1)
[2020-04-06 21:52] LABS: ALBUMIN 3.5 g/dl (3.4-5.0)
[2020-04-06 21:55] LABS: CREATININE 0.9 mg/dL (0.55-1.3)
[2020-04-06 21:56] LABS: BILIRUBIN,TOTAL 0.2 mg/dL (0.2-1); TOT PROT 8.8 g/dl (6.4-8.2)
[2020-04-06 22:36] LABS: EPI CELLS 7 /uL (0-25.1); HYALINE CASTS 1 /uL (0-3.1); PH,URINE 5.5 (5.0-8.0); URINE APPEARANCE CLEAR; URINE BACTERIA 13 /uL (0-1359); URINE BILIRUBIN NEGATIVE (NEGATIVE); URINE COLOR YELLOW; URINE GLUCOSE (UA) NEGATIVE (NEGATIVE); URINE KETONE 1+ (NEGATIVE); URINE LEUK ESTERASE NEGATIVE (NEGATIVE); URINE NITRITE NEGATIVE (NEGATIVE); URINE PROTEIN 1+ (NEGATIVE); URINE RBC 562 /uL (0-23.9); URINE UROBILINOGEN 0.2 mg/dL (0.2-1.0); URINE WBC 2 /uL (0-25.8)
[2020-04-06 23:51] VITALS: BP 154/95; PULSE 84
== END 2020-04-06 23:50 | disposition home or self-care (01) ==
LOC: JER 20:10
PROC: 3E033NZ Introduction of Analgesics, Hypnotics, Sedatives into Peripheral Vein, Percutaneous Approach (ICD-10-PCS; principal; 2020-04-06)
PROC: 3E033GC Introduction of Other Therapeutic Substance into Peripheral Vein, Percutaneous Approach (ICD-10-PCS; 2020-04-06)
DX: N23 Unspecified renal colic (principal); N13.2 Hydronephrosis with renal and ureteral calculous obstruction; D64.9 Anemia, unspecified
CPT/HCPCS: 36415; 76705-TC; 76775; 80053; 81003; 84703; 85025; 87086; 99285-25; J0131

== ENCOUNTER 2020-07-09 04:26 | Inpatient (IN) | payer OTHER ==
[2020-07-05 11:00] VITALS: BMI 33.1
[2020-07-09] MEDS ORDERED: BUPIVACAINE LIPOSOME/PF (EXPAREL) 266 MG/20 ML VIAL ONE (07:06)
[2020-07-09] MEDS ORDERED: MIDAZOLAM HCL 2 MG/2 ML SINGLE DOSE VIAL ONE ×3 (07:07→07:42)
[2020-07-09] MEDS ORDERED: ceFAZolin SODIUM 1 GM VIAL ONE ×2 (07:10→08:13)
[2020-07-09] MEDS ORDERED: VASOPRESSIN 20 UNITS/ML VIAL IV ONE (07:12)
[2020-07-09] MEDS ORDERED: CEFAZOLIN 2 GM in DEXTROSE 5%-WATER - 100 ML IVPB ONE (07:30)
[2020-07-09] MEDS ORDERED: SUCCINYLCHOLINE CHLORIDE 200 MG/10 ML SYRINGE ONE (07:42)
[2020-07-09] MEDS ORDERED: PROPOFOL 20 ML ONE (07:42)
[2020-07-09] MEDS ORDERED: ROCURONIUM BROMIDE 50 MG/5 ML SYRINGE ONE (07:42)
[2020-07-09] MEDS ORDERED: TRANEXAMIC ACID 1000 MG/10 ML VIAL ONE (08:03)
[2020-07-09] MEDS ORDERED: DEXAMETHASONE SOD PHOSPHATE 4 MG/1 ML VIAL ONE (08:13)
[2020-07-09] MEDS ORDERED: ceFAZolin 2 GRAM PREMIX BAG IVPB ONE (08:14)
[2020-07-09] MEDS ORDERED: LIDOCAINE HCL/PF 2% SDV 5ML VIAL ONE (08:23)
[2020-07-09] MEDS ORDERED: ACETAMINOPHEN INJECTION 100 ML IVPB ONE (08:29)
[2020-07-09] MEDS ORDERED: HYDROmorphone HCl 2 MG/ML VIAL ONE (08:44)
[2020-07-09] MEDS ORDERED: LABETALOL HCL 5 MG/1 ML (100MG/20 ML VIAL) ONE (08:46)
[2020-07-09] MEDS ORDERED: KETOROLAC TROMETHAMINE 30 MG/1 ML VIAL ONE (10:42)
[2020-07-09] MEDS ORDERED: ONDANSETRON 4 MG/2 ML VIAL IVPUSH PRN (11:04)
[2020-07-09] MEDS ORDERED: oxyCODONE HCL 5 MG TABLET PO PRN ×3 (11:04→12:05)
[2020-07-09] MEDS ORDERED: LACTATED RINGERS SOLUTION 1,000 ML/1,000 ML INFUS.BAG IV SCH (11:15)
[2020-07-09] MEDS ORDERED: CEFAZOLIN 2 GM/D5W 2 GM/50 ML ML IVPB ONE (11:27)
[2020-07-09] MEDS ORDERED: traMADol HCL 50 MG TABLET PO PRN (12:05)
[2020-07-09] MEDS ORDERED: CEFAZOLIN 1 GM in DEXTROSE 5%-WATER - 1 GM/50 ML IVPB IVPB SCH (14:00)
[2020-07-09 14:21] LABS: ALBUMIN 3.1 g/dl (3.4-5.0); CALCIUM 7.6 mg/dL (8.5-10.1)
[2020-07-09 14:24] LABS: CREATININE 0.8 mg/dL (0.55-1.3)
[2020-07-09 14:26] LABS: BILIRUBIN,TOTAL 0.2 mg/dL (0.2-1); TOT PROT 6.9 g/dl (6.4-8.2)
[2020-07-09] MEDS: CEFAZOLIN 1 GM/D5W 1 GM/50 ML BAG IVPB SCH (15:58)
[2020-07-09] MEDS: IBUPROFEN 800 MG/8 ML IJ IVPB PRN (16:43)
[2020-07-09 19:46] LABS: HEMATOCRIT 31.6 % (32.4-45.2); HEMOGLOBIN 10.3 GM/dL (10.7-15.3); MCH 25.9 pg (25.7-33.7); MCHC 32.7 g/dl (32.0-36.0); MEAN CELL VOLUME 79.1 fl (80-96); MEAN PLT VOLUME 9.7 fl (7.5-11.1); PLATELET COUNT 211 K/MM3 (134-434); RBC 3.99 M/mm3 (3.60-5.2); RDW 18.1 % (11.6-15.6); WHITE BLOOD COUNT 9.1 K/mm3 (4.0-10.0)
[2020-07-09] MEDS: ACETAMINOPHEN 325 MG TABLET (FP) PO PRN (20:00)
[2020-07-09 20:04] LABS: BLOOD UREA NITROGEN 7.4 mg/dL (7-18)
[2020-07-09 20:07] LABS: CREATININE 0.8 mg/dL (0.55-1.3)
[2020-07-09] MEDS: DOCUSATE SODIUM 100 MG CAPSULE (FP) PO SCH (23:24)
[2020-07-10] MEDS: CEFAZOLIN 1 GM/D5W 1 GM/50 ML BAG IVPB SCH ×3 (00:14→16:13)
[2020-07-10] MEDS: IBUPROFEN 800 MG/8 ML IJ IVPB PRN (01:53)
[2020-07-10 08:45] LABS: HEMATOCRIT 28.5 % (32.4-45.2); HEMOGLOBIN 9.6 GM/dL (10.7-15.3); MCH 26.3 pg (25.7-33.7); MCHC 33.8 g/dl (32.0-36.0); MEAN CELL VOLUME 77.7 fl (80-96); MEAN PLT VOLUME 9.7 fl (7.5-11.1); PLATELET COUNT 203 K/MM3 (134-434); RBC 3.66 M/mm3 (3.60-5.2); RDW 18.7 % (11.6-15.6); WHITE BLOOD COUNT 10.5 K/mm3 (4.0-10.0)
[2020-07-10 09:06] LABS: BLOOD UREA NITROGEN 6.9 mg/dL (7-18); CALCIUM 7.9 mg/dL (8.5-10.1)
[2020-07-10 09:09] LABS: CREATININE 0.7 mg/dL (0.55-1.3)
[2020-07-10] MEDS: ENOXAPARIN NA (PORCINE) 40 MG/0.4 ML DISP.SYRIN SQ SCH (09:50)
[2020-07-10] MEDS: DOCUSATE SODIUM 100 MG CAPSULE (FP) PO SCH ×2 (09:51→21:00)
[2020-07-10] MEDS: ACETAMINOPHEN 325 MG TABLET (FP) PO PRN ×3 (09:51→20:54)
[2020-07-10] MEDS: oxyCODONE HCL 5 MG TABLET PO PRN ×2 (09:52→20:54)
[2020-07-10] MEDS ORDERED: cloNIDine HCL 0.1 MG TABLET PO SCH (10:00)
[2020-07-10] MEDS: cloNIDine HCL 0.1 MG TABLET PO SCH ×2 (10:35→21:00)
[2020-07-10] MEDS: IRON POLYSACCHARIDES 150 MG CAPSULE PO SCH (10:35)
[2020-07-10] MEDS: IBUPROFEN 600 MG TABLET (FP) PO PRN (16:21)
[2020-07-11] MEDS: ACETAMINOPHEN 325 MG TABLET (FP) PO PRN ×2 (02:46→08:46)
[2020-07-11] MEDS: IBUPROFEN 600 MG TABLET (FP) PO PRN ×2 (02:46→08:46)
[2020-07-11 08:32] LABS: BASO % 0.8 % (0-2.0); EOS % 1.1 % (0-4.5); HEMATOCRIT 26.4 % (32.4-45.2); HEMOGLOBIN 8.8 GM/dL (10.7-15.3); LYMPH % 16.6 % (8-40); MCH 26.6 pg (25.7-33.7); MCHC 33.5 g/dl (32.0-36.0); MEAN CELL VOLUME 79.5 fl (80-96); MEAN PLT VOLUME 10.1 fl (7.5-11.1); MONO % 8.1 % (3.8-10.2); NEUT % 73.4 % (42.8-82.8); PLATELET COUNT 198 K/MM3 (134-434); RBC 3.32 M/mm3 (3.60-5.2); RDW 18.3 % (11.6-15.6); WHITE BLOOD COUNT 8.7 K/mm3 (4.0-10.0)
[2020-07-11] MEDS: IRON POLYSACCHARIDES 150 MG CAPSULE PO SCH (09:44)
[2020-07-11] MEDS: DOCUSATE SODIUM 100 MG CAPSULE (FP) PO SCH (09:44)
[2020-07-11] MEDS: ENOXAPARIN NA (PORCINE) 40 MG/0.4 ML DISP.SYRIN SQ SCH (09:44)
[2020-07-11] MEDS: cloNIDine HCL 0.1 MG TABLET PO SCH (09:44)
[2020-07-11 10:13] VITALS: BP 133/88; PULSE 81; TEMP 98
== END 2020-07-11 11:15 | disposition home or self-care (01) | DRG 519 ==
LOC: J2C 04:26 → J3W 12:52
PROVIDERS: ADMIT Obstetrics & Gynecology; ATTEND Obstetrics & Gynecology
PROC: 0DNW0ZZ Release Peritoneum, Open Approach (ICD-10-PCS; 2020-07-09)
PROC: 30233N1 Transfusion of Nonautologous Red Blood Cells into Peripheral Vein, Percutaneous Approach (ICD-10-PCS; 2020-07-09)
PROC: 0UB90ZZ Excision of Uterus, Open Approach (ICD-10-PCS; principal; 2020-07-09 07:30)
PROC: 0UB00ZZ Excision of Right Ovary, Open Approach (ICD-10-PCS; 2020-07-09 07:30)
DX: D25.1 Intramural leiomyoma of uterus (principal); D62 Acute posthemorrhagic anemia; D25.0 Submucous leiomyoma of uterus; D25.2 Subserosal leiomyoma of uterus; N73.6 Female pelvic peritoneal adhesions (postinfective); D64.9 Anemia, unspecified; N99.61 Intraoperative hemorrhage and hematoma of a genitourinary system organ or structure complicating a genitourinary system procedure; I10 Essential (primary) hypertension; Y83.9 Surgical procedure, unspecified as the cause of abnormal reaction of the patient, or of later complication, without mention of misadventure at the time of the procedure; N83.11 Corpus luteum cyst of right ovary
CPT/HCPCS: 36415; 36430; 80048; 80053; 85025; 85027; 86850; 86900; 86901; 86922; 88305-TC; 94010; 94760; J0131; J0735; P9058

== ENCOUNTER 2020-11-29 19:50 | Emergency (ER) | payer OTHER ==
[2020-11-29 20:25] VITALS: BP 165/98; PULSE 85; TEMP 98.7; BMI 32.5
[2020-11-29] MEDS ORDERED: DIPHTH,PERTUSS(ACELL),TET 0.5 ML DISP.SYRIN IM ONE ×2 (21:08→21:36)
== END 2020-11-29 21:48 | disposition home or self-care (01) ==
LOC: JER 19:50 → JERFT 19:50
PROC: 3E0234Z Introduction of Serum, Toxoid and Vaccine into Muscle, Percutaneous Approach (ICD-10-PCS; principal; 2020-11-29)
DX: S61.512A Laceration without foreign body of left wrist, initial encounter (principal); Y99.9 Unspecified external cause status
CPT/HCPCS: 90471; 90715; 99284-25

== ENCOUNTER 2023-05-28 23:45 | Emergency (ER) | payer OTHER ==
[2023-05-28 23:50] VITALS: TEMP 98.4; BMI 30.5
[2023-05-29] MEDS ORDERED: ACETAMINOPHEN INJECTION 100 ML IVPB ONE (00:43)
[2023-05-29] MEDS: ACETAMINOPHEN 1000 MG/100 ML BAG IVPB ONE (00:55)
[2023-05-29 00:56] VITALS: PULSE 85
[2023-05-29 01:00] LABS: BASO % 1.9 % (0-2.0); EOS % 0.9 % (0-4.5); HEMATOCRIT 32.9 % (32.4-45.2); HEMOGLOBIN 10.6 GM/dL (10.7-15.3); LYMPH % 34.8 % (8-40); MCH 25.2 pg (25.7-33.7); MCHC 32.1 g/dl (32.0-36.0); MEAN CELL VOLUME 78.5 fl (80-96); MEAN PLT VOLUME 9.7 fl (7.5-11.1); MONO % 8.8 % (3.8-10.2); NEUT % 53.6 % (42.8-82.8); PLATELET COUNT 244 10^3/uL (134-434); RBC 4.19 M/mm3 (3.60-5.2); RDW 17.7 % (11.6-15.6); WHITE BLOOD COUNT 5.1 K/mm3 (4.0-10.0)
[2023-05-29 01:08] LABS: INR 1.06 (0.83-1.09); PROTHROMBIN TIME (PATIENT) 12.3 SEC (9.7-13.0)
[2023-05-29 01:11] LABS: ACTIVATED PTT 33.6 SECONDS (25.2-36.5)
[2023-05-29 01:12] LABS: POTASSIUM 3.7 mmol/L (3.5-5.1)
[2023-05-29 01:14] LABS: BLOOD UREA NITROGEN 16.6 mg/dL (7-18); CALCIUM 8.7 mg/dL (8.5-10.1); MAGNESIUM 1.8 mg/dL (1.8-2.4)
[2023-05-29 01:15] LABS: ALBUMIN 3.6 g/dl (3.4-5.0)
[2023-05-29 01:17] LABS: CREATININE 1.1 mg/dL (0.55-1.3)
[2023-05-29 01:19] LABS: BILIRUBIN,TOTAL 0.2 mg/dL (0.2-1); TOT PROT 8.2 g/dl (6.4-8.2)
[2023-05-29 03:15] VITALS: BP 170/99; RESP 16
== END 2023-05-29 03:22 | disposition home or self-care (01) ==
LOC: JER 23:45
PROC: 3E033NZ Introduction of Analgesics, Hypnotics, Sedatives into Peripheral Vein, Percutaneous Approach (ICD-10-PCS; principal; 2023-05-29)
DX: R07.2 Precordial pain (principal); M79.601 Pain in right arm; R68.84 Jaw pain
CPT/HCPCS: 36415; 71046-TC-FY; 80053; 83735; 83880; 84484; 84703; 85025; 85610; 85730; 86850; 86900; 86901; 93005; 93010; 99285-25; J0131

== ENCOUNTER 2023-08-04 20:29 | Emergency (ER) | payer OTHER ==
[2023-08-04 20:35] VITALS: PULSE 72; RESP 18; TEMP 98.2; BMI 31.2
[2023-08-04] MEDS ORDERED: IBUPROFEN 400 MG TABLET (FP) PO ONE (22:00)
[2023-08-04] MEDS ORDERED: LIDOCAINE 4% PATCH TP ONE (22:01)
[2023-08-04] MEDS: LIDOCAINE 4% PATCH TP ONE (22:19)
[2023-08-04] MEDS: IBUPROFEN 400 MG TABLET (FP) PO ONE (22:19)
[2023-08-04] MEDS: LIDOCAINE PATCH REMOVAL MC SCH (22:20)
[2023-08-04 22:22] VITALS: BP 169/97
== END 2023-08-04 22:22 | disposition home or self-care (01) ==
LOC: JER 20:29
DX: M25.531 Pain in right wrist (principal); M79.644 Pain in right finger(s); W22.8XXA Striking against or struck by other objects, initial encounter
CPT/HCPCS: 99283-25

== ENCOUNTER 2024-07-01 16:58 | Emergency (ER) | payer OTHER ==
[2024-07-01 17:08] VITALS: BP 157/99; PULSE 98; RESP 18; TEMP 98.3; BMI 30.9
[2024-07-01 19:10] LABS: ABSOLUTE IMMATURE GRANULOCYTES 0.02 x10^3/uL (0.0-0.031); BASOPHILS # 0.04 x10^3/uL (0.01-0.08); EOSINOPHIL % 0.3 % (0.7-5.8); EOSINOPHILS # 0.02 x10^3/uL (0.04-0.36); HEMATOCRIT 30.7 % (34.1-44.9); HEMOGLOBIN 9.2 g/dL (11.2-15.7); MEAN CELL VOLUME 80.2 fl (79.4-94.8); MONOCYTE # 0.61 x10^3/uL (0.24-0.86); MONOCYTE % 7.9 % (4.7-12.5); PLATELET COUNT 257 x10^3/uL (182-369); RDW 16.6 % (12.1-16.8)
[2024-07-01 19:20] LABS: INR 1.26 (0.83-1.09); PROTHROMBIN TIME (PATIENT) 13.9 SEC (9.7-13.0)
[2024-07-01 19:23] LABS: ACTIVATED PTT 33.3 SECONDS (25.2-36.5)
[2024-07-01 19:46] LABS: POTASSIUM 3.1 mmol/L (3.5-5.1)
[2024-07-01 19:48] LABS: ALBUMIN 3.7 g/dl (3.4-5.0); CALCIUM 9.5 mg/dL (8.5-10.1)
[2024-07-01 19:49] LABS: BLOOD UREA NITROGEN 10.6 mg/dL (7-18)
[2024-07-01 19:52] LABS: CREATININE 0.9 mg/dL (0.55-1.3)
[2024-07-01 19:53] LABS: BILIRUBIN,TOTAL 0.3 mg/dL (0.2-1); TOT PROT 8.2 g/dl (6.4-8.2)
[2024-07-01 20:33] LABS: HCV DIAGNOSTIC IN-HOUSE W/RFLX NON-REACTIVE (NONREACTIVE); HIV INTERPRETATION NEGATIVE (NEGATIVE)
[2024-07-01 21:34] LABS: MAGNESIUM 1.9 mg/dL (1.8-2.4)
[2024-07-01] MEDS ORDERED: POTASSIUM CHLORIDE ORAL LIQUID 20 MEQ/15 ML ONE (22:02)
[2024-07-01] MEDS: POTASSIUM CHLORIDE ORAL LIQUID 20 MEQ/15 ML PO ONE (22:04)
== END 2024-07-01 22:13 | disposition left against medical advice (07) ==
LOC: JER 16:58
DX: D25.9 Leiomyoma of uterus, unspecified (principal); N13.2 Hydronephrosis with renal and ureteral calculous obstruction; N92.1 Excessive and frequent menstruation with irregular cycle; R53.1 Weakness; R10.30 Lower abdominal pain, unspecified; R11.0 Nausea; R35.0 Frequency of micturition
CPT/HCPCS: 36415; 76775-TC; 76856-TC; 80053; 83735; 84703; 85025; 85610; 85730; 86803; 86850; 86900; 86901; 87389; 99284-25